=== PATIENT | female | born 1940 | race Hispanic/Latino ===

== ENCOUNTER 2017-02-07 15:19 | Inpatient (IN) | payer OTHER, MEDICARE ==
[2017-02-07 15:25] VITALS: BMI 24.7
--- NOTE | 2017-02-07 15:33 | ED PDOC ---
HPI:STROKE - Historian Historian: Patient (noted slurred speech around 6:30a today. She then noted drooling from the left side starting about 2 hours ago. She denies FORTUNE's or Loc. ), EMS - Chief Complaint Chief Complaint: Weakness, Slurred speech - Onset Date: 02/07/17 Time: 06:30 - Timing Timing: Persistent - Context Context: Other - Location Location: None, Difficult to localize Locate left: Face - Radiation Radiation: None NIHSS Stroke Scale - Date/Time Evaluation Performed Date Performed: 02/07/17 Time Performed: 15:20 When Was NIHSS Performed: Baseline - How Severe is the Stroke Level of Consciousness: 0=Alert LOC to Questions: 0=Both comments correct LOC to commands: 0=Obeys both correctly Best Gaze: 0=Normal Visual: 0=No visual loss Facial: 2=Partial (lower face paralysis) (left nasolabial) Motor Arm - Left: 0=No drift Motor Arm - Right: 0=No drift Motor Leg - Left: 0=No drift Motor Leg - Right: 0=No drift Limb Ataxia: 0=Absent Sensory: 0=Normal Best Language: 1=Mild to moderate aphasia Dysarthia: 1=Mild to moderate slurring Extinction & Inattention (Neglect): 0=Normal, no object Score: 4 rTPA Inclusion/Exclusion - Refusal of Treatment Patient Refused Treatment: No - Inclusion Criteria for Altepase Patient is 18 years or Older: Yes The Clinical Diagnosis of Ischemic Stroke That is Causing a Potentially Disabling Neurological Deficit: Yes Time of Onset is Well Established to be Less Than 270 Minute Before Treatment Would Begin: Yes Risk/Benefit Discussed With Patient/Family Member Present: Yes - Exclusion Criteria for Altepase Uncontrolled Hypertension at Time of Treatment (Systolic BP above 185 or Diastolic BP above 110 mmHg): No Active Internal Bleeding: No Known Bleeding Diathesis Including but Not Limited to: Platelets Below 100,000/ mm,PTT Above 40 sec After Heparin Use, Current Use of Oral Anitcoagulant With INR Greater Than 1.7 or PT Greater Than 15 secs: No Evidence of an Intracranial Hemorrhage: No Evidence of Major Acute Infarct With Signs Greater Than 1/3 MCA Territory: No Suspicion of Subarachnoid Hemorrhage on Pretreatment Evaluation Even if CT Head Negative For Hemorrhage: No - Warning to TPA With Conditions Following Conditions Weighed Against Anticipated Benefit: Yes Condition: Age Greater Than 75 years Additional Condition (For 3-4.5 Hour Window): Any anticoagulant use prior to admission (Even if INR less than 1.7) Past Medical History Reviewed: Historical Data, Nursing Documentation, Vital Signs Vital Signs: Last Vital Signs Temp 98.5 F 02/07/17 15:25 Pulse 74 02/07/17 15:25 Resp 18 02/07/17 15:25 BP 147/88 02/07/17 15:25 Pulse Ox 99 02/07/17 15:25 - Medical History PMH: Atrial Fibrillation, HTN, Hypothyroidism - Surgical History Surgical History: No Surg Hx - Family History Family History: States: No Known Family Hx - Living Arrangements Living Arrangements: With Family - Social History Current smoker - smoking cessation education provided: No - Home Medications Home Medications: Ambulatory Orders Medication Instructions Recorded Atorvastatin [Lipitor] 10 mg PO HS 02/07/17 Docusate [Colace] 100 mg PO BID 02/07/17 Levothyroxine [Synthroid] 75 mcg PO DAILY 02/07/17 Metoprolol Succinate [Metoprolol 50 mg PO Q12H 02/07/17 Succinate] Multivitamin [Multi-Vitamin Daily] 1 tab PO DAILY 02/07/17 Olmesartan [BenicarNf] 40 mg PO DAILY 02/07/17 Warfarin [Coumadin] 5 mg PO DAILY 02/07/17 - Allergies Allergies/Adverse Reactions: Allergies Allergy/AdvReac Type Severity Reaction Status Date / Time Penicillins Allergy RASH Verified 02/07/17 15:24 Review of Systems ROS Statement: Except As Marked, All Systems Reviewed And Found Negative Neurological: Positive for: Weakness (left lower face), Change in Speech Physical Exam - Reviewed Nursing Documentation Reviewed: Yes Vital Signs Reviewed: Yes - Physical Exam Appears: Positive for: Well, Non-toxic, No Acute Distress Head Exam: Positive for: ATRAUMATIC, NORMAL INSPECTION, NORMOCEPHALIC Skin: Positive for: Normal Color, Warm, DRY Eye Exam: Positive for: EOMI, Normal appearance, PERRL ENT: Positive for: Normal ENT Inspection Neck: Positive for: Normal, Painless ROM Cardiovascular/Chest: Positive for: Regular Rate, Rhythm Respiratory: Positive for: CNT, Normal Breath Sounds Gastrointestinal/Abdominal: Positive for: Normal Exam, Bowel Sounds, Soft Back: Positive for: Normal Inspection Rectal: Positive for: Other (left nasolabial weakess, slurred speech) Extremity: Positive for: Normal ROM Neurologic/Psych: Positive for: Alert, Oriented - ECG O2 Sat by Pulse Oximetry: 99 - Radiology X-Ray: Read By Radiologist X-Ray Interpretation: No Acute Disease - Critical Care Total Time (In Min): 30 Medical Decision Making Medical Decision Makin.45p - case d/w Dr. Montes De Oca. Patient's symptoms started 6:30a - she is beyond window for thrombolysis. Admit to observation Disposition - Clinical Impression Clinical Impression: CVA (cerebral vascular accident), TIA (transient ischemic attack) - Patient ED Disposition Is Patient to be Admitted: Yes Doctor Will See Patient In The: Hospital - Disposition Disposition: Transfer of Care Disposition Time: 15:50 Condition: GUARDED - Pt Status Changed To: Hospital Disposition Of: Observation - POA Present On Arrival: None
--- NOTE | 2017-02-07 15:47 | CT ---
PROCEDURE: CT HEAD WITHOUT CONTRAST. HISTORY: code stroke COMPARISON: None available. TECHNIQUE: Axial computed tomography images were obtained through the head/brain without intravenous contrast. Radiation dose: Total exam DLP = 853.50 mGy-cm. FINDINGS: HEMORRHAGE: No intracranial hemorrhage. BRAIN: No mass effect or edema. Mild atrophy, consistent with patient age. Mild periventricular white matter lucency consistent with chronic microvascular ischemic change. Small old bilateral basal ganglia lacunar infarcts. No evidence of acute infarct. VENTRICLES: Unremarkable. No hydrocephalus. CALVARIUM: Unremarkable. PARANASAL SINUSES: Unremarkable as visualized. No significant inflammatory changes. MASTOID AIR CELLS: Unremarkable as visualized. No inflammatory changes. OTHER FINDINGS: None. IMPRESSION: No evidence of acute infarct. Age-appropriate involutional changes. Small old bilateral basal ganglia lacunar infarcts. The findings in this examination were discussed by telephone with Dr. Prater at 3:45 p.m. on 02/07/2017.
[2017-02-07 15:49] LABS: BASO % 0.5 % (0.0-2.0); EOS # 0.1 K/uL (0.0-0.7); EOS % 1.1 % (0.0-4.0); HEMATOCRIT 40.7 % (34.0-47.0); LYMPH # 2.8 K/uL (1.0-4.3); LYMPH % 34.7 % (20.0-40.0); MEAN CELL VOLUME 97.5 fl (81.0-99.0); MEAN CORPUSCULAR HEMOGLOBIN 29.6 pg (27.0-31.0); MEAN CORPUSCULAR HGB CONC 30.3 g/dL (33.0-37.0); MEAN PLATELET VOLUME 10.1 fl (7.2-11.7); MONO # 0.7 K/uL (0.0-0.8); MONO % 9.2 % (0.0-10.0); NEUT # 4.4 K/uL (1.8-7.0); NEUT % 54.5 % (50.0-75.0); NRBC % 0.1 % (0.0-0.0); RED CELL DISTRIBUTION WIDTH 13.4 % (11.5-14.5); WHITE BLOOD COUNT 8.1 K/uL (4.8-10.8)
--- NOTE | 2017-02-07 15:58 | RAD ---
HISTORY: left drooling COMPARISON: None available. TECHNIQUE: Chest, one view. FINDINGS: LUNGS: No focal consolidation. Suspect right lower lobe and left mid lung zone calcified granulomas versus prominent vessels on end. Please note that chest x-ray has limited sensitivity for the detection of pulmonary masses. PLEURA: No significant pleural effusion identified. No definite pneumothorax . CARDIOVASCULAR: The cardiomediastinal silhouette appears within normal limits of size. OSSEOUS STRUCTURES: Osseous demineralization. Degenerative changes. Healed fracture deformity of the left humerus. VISUALIZED UPPER ABDOMEN: Unremarkable. OTHER FINDINGS: None. IMPRESSION: No acute findings. See above.
[2017-02-07 16:00] LABS: ALB/GLOB RATIO 1.1 (1.0-2.1); ALKALINE PHOSPHATASE 70 U/L (38-126); ALT/SGPT 43 U/L (9-52); AST/SGOT 48 U/L (14-36); BILIRUBIN,TOTAL 1.1 mg/dl (0.2-1.3); BLOOD UREA NITROGEN 17 mg/dl (7-17); CALCIUM 9.6 mg/dL (8.4-10.2); CARBON DIOXIDE 23 mmol/L (22-30); CHLORIDE 103 mmol/L (98-107); CHOLESTEROL 190 mg/dL (0-199); GFR AFRICAN-AMERICAN > 60; GLUCOSE,RANDOM 182 mg/dL (65-105); POTASSIUM 4.3 MMOL/L (3.6-5.0); SODIUM 144 mmol/l (132-148); TOTAL PROTEIN 8.3 G/DL (6.3-8.2)
[2017-02-07 17:21] LABS: PARTIAL THROMBOPLASTIN TIME 28.7 SECONDS (23.3-32.5)
[2017-02-07] MEDS: Metoprolol Succinate 50 mg XL Tab PO SCH (18:07)
--- NOTE | 2017-02-07 18:50 | CON ---
DATE: 02/07/2017 REASON FOR THE CONSULTATION: Transient ischemic attack. CHIEF COMPLAINT: The patient was brought into [facility] with a history of slurred speech this morning, which is followed by pooling of saliva on her mouth. From neurologic al point of view, I was called in to evaluate her for further management. HISTORY OF PRESENT ILLNESS: The patient is a 76-year-old right-handed female, usual state of health until this morning she woke up garbled speech. Immediately she called her ; that wa s witnessed by him also. She stayed home to make sure that her symptoms get better, however, a few h ours later the patient started to have drooling on the right side which is new to her. Since she did have a stroke in the past, she decided to come to the hospital for further evaluation. PAST MEDICAL HISTORY: Atrial fibrillation, stroke 2 years ago manifesting with right hemiparesis. PERSONAL HISTORY: Denies smoking or alcohol use. ALLERGIES: No known allergies. MEDICATIONS: Warfarin, Diovan, atorvastatin, levothyroxine, metoprolol. REVIEW OF SYSTEMS: As per H and P. VITAL SIGNS: Her blood pressure 121/70, mean arterial pressure of 87, respiratory rate 16, temperatu re afebrile. NECK: Supple. No carotid bruit. HEART SOUNDS: Irregularly irregular with a rate of 76. NEUROLOGICAL EXAMINATION: MENTAL STATUS EXAMINATION: She is awake, alert, oriented to person, place, and time. Speech is syeda r. Naming, repetition, fluency, comprehension all within normal. CRANIAL NERVE EXAMINATION: Visual field intact. Pupil reactive to light, extraocular movements norm al, no nystagmus. No facial sensory deficit, no facial asymmetry. Hearing is normal. Tongue is mid line. Good gag. MOTOR EXAMINATION: Outstretched hands with eyes closed, no drift noted. Power is symmetric on eithe r side. Right hand shows a resting tremor. DEEP TENDON REFLEXES: Biceps, brachioradialis, triceps 2+ on the right side; left side 1+. Right kn ee 2+, left knee 1+. Both ankles are absent. Plantars are upgoing on the right side; left side was downgoing. SENSORY EXAMINATION: Mild sensorimotor neuropathy. No cortical sensory loss. No extinction to doub le simultaneous stimuli. CONCLUSION: Upon reviewing her history and neurological examination, the patient is presenting with dominant hemispheric area dysfunction manifesting with slurred speech and drooling of saliva, which r aised the possibility of bulbar dysfunction. This is probably posterior cerebral artery versus left carotid artery dysfunction. Considering this event secondary to cardioembolic because of paroxysmal atrial fibrillation and her INR is low. At present, she is back to normal. No evidence of new symptom. The patient, herself, she feels almo st 75% is normal. Considering her symptoms and INR is 1.35, I would like to put her on warfarin 6 mg, in addition to th e other medication which she has been taking at present. INR should be followed every day. I also r ecommend to have a cardiology consultation for her cardiac status. In the meantime, I would like her to have MRI of the brain, MR angiogram, echocardiogram, carotid Doppler to be done. Will keep her on DVT prophylaxis. If condition progressed the patient may need bridging dose of hepa rin to keep the therapeutic level of INR until we get a therapeutic level INR. Dandre Montes De Oca MD cc: [id number] TT: 02/07/2017 18:49:59 Confirmation # [id number] Dictation # [id number] anna marie
--- NOTE | 2017-02-07 20:45 | MRI ---
EXAM: MR Head Without Intravenous Contrast. CLINICAL HISTORY: 76 years old, female; Signs and symptoms; Speech disturbance; Slurred speech; Patient HX: Pat noted slrurred speech around 6: 30 am also noted drooling from the left side; Additional info: CVA TECHNIQUE: Magnetic resonance images of the head/brain without intravenous contrast in multiple planes. EXAM DATE/TIME: 02/07/2017 5:20 PM COMPARISON: Head CT done earlier on the same day, at 3:29:12 PM FINDINGS: BRAIN: Best seen on images 13-15, there is a focal area of restricted diffusion seen in the right frontal lobe, along the sylvian fissure, compatible with an acute infarct. This measures about 2 cm maximally. Additional tiny, round focus of restricted diffusion is seen in the right frontal lobe more posteriorly, also compatible with an acute infarct. Somewhat extensive foci of increased T2 signal are seen in the white matter bilaterally, nonspecific in appearance, but most likely representing chronic small vessel ischemic changes, in a patient this age. Findings compatible with bilateral old/chronic infarcts in the basal ganglia bilaterally. Diffuse, age-related cortical atrophy and ventriculomegaly. No other significant abnormality identified. No acute extra-axial fluid collections visualized. No evidence of midline shift, ventricular effacement, basilar cistern effacement, or other significant intracranial mass effect. No signal abnormality seen to suggest acute intracranial hemorrhage. VENTRICLES: See above. BONES/JOINTS: No acute abnormality. SINUSES: Visualized paranasal sinuses appear clear, except for minimal mucosal thickening bilateral ethmoid sinuses. MASTOID AIR CELLS: Mastoid aircells appear clear. Negative. IMPRESSION: - Findings compatible a small acute infarct in the right frontal lobe, along the sylvian fissure. - See above for remaining findings.
--- NOTE | 2017-02-07 21:06 | MRI ---
EXAM: MR Angiography Head Without Intravenous Contrast. CLINICAL HISTORY: 76 years old, female; Signs and symptoms; Speech disturbance; Slurred speech; Additional info: Left cortical stroke TECHNIQUE: Magnetic resonance angiography images of the head without intravenous contrast. EXAM DATE/TIME: 02/07/2017 6:03 PM COMPARISON: Recent MRI of the brain. FINDINGS: RIGHT INTERNAL CAROTID ARTERY: Intracranial segment is patent with no significant stenosis. No aneurysm. RIGHT ANTERIOR CEREBRAL ARTERY: Incidental note is made of an azygos anterior cerebral artery. This is a normal variant. Best seen on image 100 of series 2, there are findings suspicious for a 5 mm aneurysm of the azygos anterior cerebral artery. No occlusion or significant stenosis. RIGHT MIDDLE CEREBRAL ARTERY: No occlusion or significant stenosis. No aneurysm. RIGHT POSTERIOR CEREBRAL ARTERY: No occlusion or significant stenosis. No aneurysm. RIGHT VERTEBRAL ARTERY: Visualized portions appear patent. LEFT INTERNAL CAROTID ARTERY: Intracranial segment is patent with no significant stenosis. No aneurysm. LEFT ANTERIOR CEREBRAL ARTERY: See above. LEFT MIDDLE CEREBRAL ARTERY: No occlusion or significant stenosis. No aneurysm. LEFT POSTERIOR CEREBRAL ARTERY: No occlusion or significant stenosis. No aneurysm. LEFT VERTEBRAL ARTERY: Appears dominant. Visualized portions appear patent. BASILAR ARTERY: No occlusion or significant stenosis. No aneurysm. IMPRESSION: - No evidence of occlusion or other acute abnormality of the major intracranial arteries. 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 - Findings were discussed with Dr. Frias on 02/07/2017 at 9:02 PM EDT. - See above for remaining findings.
--- NOTE | 2017-02-07 21:14 | MRI ---
EXAM: MR Angiography Neck Without Intravenous Contrast. CLINICAL HISTORY: 76 years old, female; Signs and symptoms; Speech disturbance; Slurred speech; Additional info: Left cortical stroke TECHNIQUE: Magnetic resonance angiography images of the neck without intravenous contrast. EXAM DATE/TIME: 02/07/2017 6:03 PM COMPARISON: No relevant prior studies available. FINDINGS: RIGHT COMMON CAROTID ARTERY: No evidence of occlusion or dissection. RIGHT INTERNAL CAROTID ARTERY: Extracranial segment is patent with no significant stenosis. No occlusion. RIGHT EXTERNAL CAROTID ARTERY: No occlusion. RIGHT VERTEBRAL ARTERY: Right vertebral artery is tortuous. Its distal aspect is poorly evaluated due to motion artifact. No evidence of occlusion. No significant stenosis. LEFT COMMON CAROTID ARTERY: No evidence of occlusion or dissection. LEFT INTERNAL CAROTID ARTERY: Extracranial segment is patent with no significant stenosis. No dissection or occlusion. LEFT EXTERNAL CAROTID ARTERY: No occlusion. LEFT VERTEBRAL ARTERY: Left vertebral artery is tortuous. It appears dominant. No evidence of occlusion or significant stenosis. SOFT TISSUES: CAROTID STENOSIS REFERENCE USING NASCET CRITERIA: % ICA stenosis = (1 - narrowest ICA diameter/diameter of distal cervical ICA) x 100. Mild - <50% stenosis. Moderate - 50-69% stenosis. Severe - 70-94% stenosis. Near occlusion - 95-99% stenosis. Occluded - 100% stenosis. IMPRESSION: - No evidence of occlusion or other acute abnormality of the major neck arteries. - See above for remaining findings.
[2017-02-07] MEDS: Enoxaparin 60 mg Syringe SC SCH (23:03)
[2017-02-08] MEDS: Metoprolol Succinate 50 mg XL Tab PO SCH ×2 (06:05→16:50)
--- NOTE | 2017-02-08 08:35 | HP ---
The patient is a 76-year-old female who was admitted via the Emergency Room because of sudden onset o f slurred speech the morning of admission. She indicates that the speech had been slurred for severa l hours prior to her presenting to the Emergency Room. She spent all day at home before she finally called a friend, and was asked to come to the Emergency Room. When she arrived at the Emergency Room her speech was still slurred, but she had no other gross neurologic deficits. She has a past medical history of cerebrovascular accident 3 years ago, atrial fibrillation which has required anticoagulation therapy with warfarin, and she had also been on metoprolol for the atrial f ibrillation. PAST MEDICAL HISTORY: Remarkable for cerebrovascular accident, hypertension, atrial fibrillation, hy perlipidemia, and hypothyroidism. FAMILY HISTORY: Nonrevealing. SOCIALLY: She does not smoke or drink. REVIEW OF SYSTEMS: Essentially remarkable for no evidence of palpitations, no chest pains, or shortn ess of breath, and no abnormal speech. No weakness of extremities. PHYSICAL EXAMINATION: The patient is alert and oriented, has no gross neurologic deficits, but speech is still slurred. Blood pressure 139/70 with a pulse of 72, respiratory rate is 18. She is afebrile, O2 sat 99% on jerry m air. SKIN: Shows fair turgor. Pupils equal, react to light and accommodation. Mouth shows fair hygiene. LUNGS: Clear. HEART: Irregular in rhythm (atrial fibrillation). BREASTS: Normal. ABDOMEN: Soft, nontender, no organomegaly. EXTREMITIES: Show no edema or cyanosis. CENTRAL NERVOUS SYSTEM EXAMINATION: Normal except for slurred speech; difficulty getting words out. RECTAL AND GENITALIA EXAMINATIONS: Deferred. LABORATORY DATA: Remarkable for WBC of 8.1, hemoglobin of 12.3, platelet count of 167,000. Sodium 1 44, potassium 4.3, BUN of 17, creatinine 0.8, serum glucose 182. Troponin less than 0.012. AST 48. Cholesterol 190, triglycerides 152, LDL 86, HDL 50. CHEST X-RAY: No acute findings. CT SCAN OF THE HEAD: No evidence of acute infarct. Small old bilateral basal ganglia lacunar infarc ts. IMPRESSION: Acute cerebrovascular accident, probably embolic in nature. History of atrial fibrillat ion, hyperlipidemia, history of hypertension. PLAN: Monitor the patient in telemetry, obtain neurology and cardiology evaluation. Continue antico agulation. Speech therapy evaluation. Physical therapy evaluation. Case discussed with the patient and the patient's at bedside. The patient normally goes to [facility], and was wondering if she needs to call and make arrangements to be transferred to [facility] if she is going to be in [place] for more than a few days. She was advised to see how sh e progresses in the next 24 hours before making a decision, but if she decides was transferred to [facility] she understands she has to make the arrangement with her , and the patient with transferred appropriately if that is what she desires. Will continue therapy as ordered. Kalin Frias MD cc: [id number] TT: 02/07/2017 19:48:50 jn 02/08/2017 07:34:39
[2017-02-08 09:29] LABS: THYROID STIMULATING HORMONE 2.76 mIU/ML (0.46-4.68)
[2017-02-08] MEDS ORDERED: Iodixanol 320 MG/ML 100 ML BOTTLE IV ONE (09:29)
[2017-02-08] MEDS ORDERED: Sodium Chloride 0.9% 50 ML IV ONE (09:29)
[2017-02-08] MEDS: Levothyroxine 75 MCG TAB PO SCH (10:04)
[2017-02-08] MEDS: Enoxaparin 60 mg Syringe SC SCH ×2 (10:05→21:22)
--- NOTE | 2017-02-08 10:07 | CP.PCM.PN ---
Subjective - Date & Time of Evaluation Date of Evaluation: 02/08/17 Time of Evaluation: 10:07 - Subjective Subjective: speech improving no weakness of extremities Objective - Vital Signs/Intake and Output Vital Signs (last 24 hours): Temp Pulse Resp BP Pulse Ox 96.1 F L 70 20 115/71 97 02/08/17 07:59 02/08/17 07:59 02/08/17 07:59 02/08/17 07:59 02/08/17 07:59 - Medications Medications: Current Medications Aspirin (Aspirin Chewable) 81 mg PO DAILY [facility] Last Admin: 02/07/17 17:33 Dose: 81 mg Atorvastatin Calcium (Lipitor) 10 mg PO HS [facility] Last Admin: 02/07/17 23:02 Dose: 10 mg Docusate Sodium (Colace) 100 mg PO BID [facility] Last Admin: 02/07/17 18:03 Dose: 100 mg Enoxaparin Sodium (Lovenox) 60 mg SC Q12 [facility] PRN Reason: Protocol Last Admin: 02/07/17 23:03 Dose: 60 mg Levothyroxine Sodium (Synthroid) 75 mcg PO DAILY [facility] Metoprolol Succinate (Toprol Xl) 50 mg PO Q12H [facility] Last Admin: 02/08/17 06:05 Dose: Not Given Valsartan (Diovan) 40 mg PO DAILY [facility] Warfarin Sodium (Coumadin) 6 mg PO QD5 [facility] PRN Reason: Protocol Stop: 02/08/17 17:01 - Labs Labs: PT 15.4 SECONDS (9.6-11.2) H 02/08/17 08:04 INR 1.48 (0.92-1.08) H 02/08/17 08:04 APTT 28.7 SECONDS (23.3-32.5) 02/07/17 15:44 - Constitutional Appears: Well - Head Exam Head Exam: ATRAUMATIC, NORMAL INSPECTION, NORMOCEPHALIC - Eye Exam Eye Exam: EOMI, Normal appearance, PERRL Pupil Exam: NORMAL ACCOMODATION, PERRL - ENT Exam ENT Exam: Mucous Membranes Moist, Normal Exam - Neck Exam Neck Exam: Full ROM, Normal Inspection. absent: Lymphadenopathy - Respiratory Exam Respiratory Exam: Clear to Ausculation Bilateral, NORMAL BREATHING PATTERN - Cardiovascular Exam Cardiovascular Exam: REGULAR RHYTHM, +S1, +S2. absent: Murmur - GI/Abdominal Exam GI & Abdominal Exam: Soft, Normal Bowel Sounds. absent: Tenderness - Rectal Exam Rectal Exam: NORMAL INSPECTION - Extremities Exam Extremities Exam: Full ROM, Normal Capillary Refill, Normal Inspection. absent : Joint Swelling, Pedal Edema - Back Exam Back Exam: NORMAL INSPECTION - Neurological Exam Neurological Exam: Alert, Awake, CN II-XII Intact, Normal Gait, Oriented x3 Additional comments: speech improved - Psychiatric Exam Psychiatric exam: Normal Affect, Normal Mood - Skin Skin Exam: Dry, Intact, Normal Color, Warm Assessment and Plan - Assessment and Plan (Free Text) Assessment: acute cva with small brain aneurysm mra/i results reviewd wit radiologist and pt Plan: [facility] will continue pt/ot and appropriate anticoagulation
--- NOTE | 2017-02-08 10:42 | US ---
PROCEDURE: Duplex ultrasound of the carotid and vertebral arteries. HISTORY: Acute left cortical infarction COMPARISON: None available. TECHNIQUE: Grayscale and duplex Doppler evaluation of the cervical carotid and vertebral arteries were performed. The common carotid, carotid bifurcations and cervical ICA and proximal ECA were evaluated. The vertebral arteries were evaluated for gross patency and direction. FINDINGS: RIGHT CAROTID ARTERIES: Common Carotid Artery: Normal. Maximal flow velocity of 84.0 cm/s. Carotid Bifurcation: Normal. Internal Carotid Artery:Normal. Maximal flow velocity of 91.6 cm/s. External Carotid Artery (proximal branches): Normal. Maximal flow velocity of 74.8 cm/s. ICA/CCA Ratio: 1.9 LEFT CAROTID ARTERIES: Common Carotid Artery: Normal. Maximal flow velocity of 77.5 cm/s. Carotid Bifurcation: Normal. Internal Carotid Artery:Normal. Maximal flow velocity of 86.5 cm/s. External Carotid Artery (proximal branches): Normal. Maximal flow velocity of 67.8 cm/s. ICA/CCA Ratio: 1.6 VERTEBRAL ARTERIES: Right Vertebral Artery: Patent. Antegrade flow. Left Vertebral Artery: Patent. Antegrade flow. OTHER FINDINGS: None. IMPRESSION: Normal Duplex Doppler of the cervical carotid and vertebral arteries.
--- NOTE | 2017-02-08 10:57 | CP.PCM.CON ---
History of Present Illness - History of Present Illness History of Present Illness: 76 y/o female admitted with CVA/slurred speech pt has fully recovered Has Hx Atrial fibrillation under care of residential sales associate at [facility] on coumadin but INR was low Pt now in NSR PMH: Atrial Fibrillation, HTN, Hypothyroidism EKG: normal sinus rhythm Troponin: neg Past Patient History - Past Medical History & Family History Past Medical History?: Yes - Past Social History Smoking Status: Former Smoker - CARDIAC Hx Cardiac Disorders: Yes Hx Atrial Fibrillation: Yes Hx Hypercholesterolemia: Yes Hx Hypertension: Yes - PULMONARY Hx Respiratory Disorders: No - NEUROLOGICAL Hx Neurological Disorder: Yes HX Cerebrovascular Accident: Yes (2012) Hx Transient Ischemic Attacks (TIA): Yes - HEENT Hx HEENT Problems: No - RENAL Hx Chronic Kidney Disease: No - ENDOCRINE/METABOLIC Hx Endocrine Disorders: Yes Hx Hypothyroidism: Yes - HEMATOLOGICAL/ONCOLOGICAL Hx Blood Disorders: Yes Hx Cancer: Yes (RIGHT BREAST CANCER) - INTEGUMENTARY Hx Dermatological Problems: No - MUSCULOSKELETAL/RHEUMATOLOGICAL Hx Musculoskeletal Disorders: No Hx Falls: No - GASTROINTESTINAL Hx Gastrointestinal Disorders: No - GENITOURINARY/GYNECOLOGICAL Hx Genitourinary Disorders: No - PSYCHIATRIC Hx Psychophysiologic Disorder: No Hx Substance Use: No - SURGICAL HISTORY Hx Surgeries: Yes Hx Mastectomy: Yes (rt. breast) - ANESTHESIA Hx Anesthesia: Yes Hx Anesthesia Reactions: No Hx Malignant Hyperthermia: No Meds Allergies/Adverse Reactions: Allergies Allergy/AdvReac Type Severity Reaction Status Date / Time Penicillins Allergy RASH Verified 02/07/17 15:24 - Medications Medications: Current Medications Aspirin (Aspirin Chewable) 81 mg PO DAILY [facility] Last Admin: 02/07/17 17:33 Dose: 81 mg Atorvastatin Calcium (Lipitor) 10 mg PO HS [facility] Last Admin: 02/07/17 23:02 Dose: 10 mg Docusate Sodium (Colace) 100 mg PO BID [facility] Last Admin: 02/08/17 10:05 Dose: 100 mg Enoxaparin Sodium (Lovenox) 60 mg SC Q12 [facility] PRN Reason: Protocol Last Admin: 02/08/17 10:05 Dose: 60 mg Levothyroxine Sodium (Synthroid) 75 mcg PO DAILY [facility] Last Admin: 02/08/17 10:04 Dose: 75 mcg Metoprolol Succinate (Toprol Xl) 50 mg PO Q12H [facility] Last Admin: 02/08/17 06:05 Dose: Not Given Valsartan (Diovan) 40 mg PO DAILY [facility] Last Admin: 02/08/17 10:05 Dose: 40 mg Warfarin Sodium (Coumadin) 6 mg PO QD5 [facility] PRN Reason: Protocol Stop: 02/08/17 17:01 Results - Vital Signs Recent Vital Signs: Last Vital Signs Temp 96.1 F L 02/08/17 07:59 Pulse 70 02/08/17 07:59 Resp 20 02/08/17 07:59 BP 115/71 02/08/17 07:59 Pulse Ox 97 02/08/17 07:59 - Labs Result Diagrams: 02/07/17 15:44 02/07/17 15:44 Labs: Laboratory Results - last 24 hr 02/08/17 02/08/17 06:20 08:04 PT 15.4 H INR 1.48 H TSH 3rd Generation 2.76 Assessment & Plan (1) TIA (transient ischemic attack) Status: Acute (2) Atrial fibrillation, chronic Assessment and Plan: pt is in sinus rhythm at present INR needs to be adjusted Status: Acute
--- NOTE | 2017-02-08 11:35 | CT ---
PROCEDURE: CT Angiography of the Brain. HISTORY: CHRISTIANE aneurysm COMPARISON: MRA head without contrast from 02/07/2017 TECHNIQUE: CT angiography of the intracranial arteries was performed. Coronal and sagittal maximum intensity projection reformated images were generated. Contrast dose: 95 mL Visipaque 320. Radiation dose: 1200.31 D LP FINDINGS: INTERNAL CEREBRAL ARTERIES: In the internal carotid arteries are patent. The right internal carotid artery is dominant with a slightly smaller left internal carotid artery. The skull base, petrous, cavernous and supraclinoid segments are bilaterally widely patient. ANTERIOR CEREBRAL ARTERIES: There is variant anatomy of the anterior cerebral arteries. There is bihemispheric anterior cerebral artery, with hypoplasia of the left A2 segment and a dominant right A2 segment. There is also fenestration in the proximal dominant right A2 segment. The left A1 segment is also hypoplastic. MIDDLE CEREBRAL ARTERIES: Both middle cerebral arteries are patent. There is a dominant right middle cerebral artery and a slightly smaller left middle cerebral artery. M1 and M2 segments are widely patent. Perisylvian branches grossly symmetric. POSTERIOR CIRCULATION: Basilar Artery: The basilar artery is patent, tortuous and normal in caliber. Distal Vertebral Arteries: The right vertebral artery is hypoplastic. The left vertebral artery is dominant. . Posterior Cerebral Arteries: There is origin of the right SERVICE PERSON. The left SERVICE PERSON is normal. Posterior Inferior Cerebellar Arteries: Normal. ANEURYSM/ VASCULAR MALFORMATIONS: There is a 5 x 3 mm saccular aneurysm arising from the midportion of the right dominant A2 segment projecting anterior superiorly. OTHER FINDINGS: None. IMPRESSION: 1. 5.3 mm saccular aneurysm projecting anterosuperiorly arising from a dominant right A2 segment. 2. Bihemispheric anterior cerebral arteries with a dominant right A2 segment and hypoplastic left A2 segment, an anatomic variant. 3. origin of the right posterior cerebral artery and a hypoplastic right distal vertebral artery, anatomic variant.
[2017-02-08 14:54] LABS: T4 9.51 ug/dl (5.5-11.0)
--- NOTE | 2017-02-08 18:32 | CARD ---
APPROVED REPORT EXAM: Two-dimensional and M-mode echocardiogram with Doppler and color Doppler. Other Information Quality : GoodRhythm : Atrial Fibrillation INDICATION CVA/TIA Atrial Fibrillation 2D DIMENSIONS IVSd1.13 (0.7-1.1cm)LVDd3.66 (3.9-5.9cm) LVOT Diameter2.36 (1.8-2.4cm)PWd1.14 (0.7-1.1cm) IVSs1.44 (0.8-1.2cm)LVDs2.55 (2.5-4.0cm) FS (%) 30.3 %PWs1.37 (0.8-1.2cm) M-Mode DIMENSIONS Left Atrium (MM)3.97 (2.5-4.0cm)IVSd0.74 (0.7-1.1cm) Aortic Root2.62 (2.2-3.7cm)LVDd5.29 (4.0-5.6cm) Aortic Cusp Exc.1.65 (1.5-2.0cm)PWd0.97 (0.7-1.1cm) IVSs1.46 cmFS (%) 41 % LVDs3.14 (2.0-3.8cm)PWs1.30 cm Mitral Valve E/A ratio0.0 TDI E/Lateral E'0.0E/Medial E'0.0 Tricuspid Valve TR Peak [id number] [id number] Peak Gr.25mmHg [id number] LEFT VENTRICLE The left ventricle is normal size. There is normal left ventricular wall thickness. The left ventricular function is normal. The left ventricular ejection fraction is 60% There is normal LV segmental wall motion. Transmitral Doppler flow pattern is Grade I-abnormal relaxation pattern. No left ventricle thrombus noted on this study. There is no ventricular septal defect visualized. There is no left ventricular aneurysm. There is no mass noted in the left ventricle. RIGHT VENTRICLE The right ventricle is normal size. There is normal right ventricular wall thickness. The right ventricular systolic function is normal. ATRIA The left atrium size is normal. The right atrium size is normal. The interatrial septum is intact with no evidence for an atrial septal defect. AORTIC VALVE The aortic valve is normal in structure and function. No aortic regurgitation is present. There is no aortic valvular stenosis. There is no aortic valvular vegetation. MITRAL VALVE The mitral valve is normal in structure and function. There is no evidence of mitral valve prolapse. There is no mitral valve stenosis. Mitral regurgitation is trace. TRICUSPID VALVE The tricuspid valve is normal in structure and function. There is mild to moderate tricuspid regurgitation. Right ventricular systolic pressure is estimated at 30-40 mmHg. There is no tricuspid valve prolapse or vegetation. There is no tricuspid valve stenosis. PULMONIC VALVE The pulmonary valve is normal in structure and function. There is no pulmonic valvular regurgitation. There is no pulmonic valvular stenosis. GREAT VESSELS The aortic root is normal in size. The ascending aorta is normal in size. The IVC is normal in size and collapses >50% with inspiration. PERICARDIAL EFFUSION The pericardium appears normal. There is no pleural effusion. <Conclusion> Normal LV systolic function Mild Mitral Regurgitation
--- NOTE | 2017-02-08 18:57 | CARD ---
APPROVED REPORT EKG Measurement Heart [id number] [place] [id number] <Conclusion> Sinus rhythm with marked sinus arrhythmia Otherwise normal ECG
--- NOTE | 2017-02-08 20:29 | PN ---
DATE: 02/08/2017 NEUROLOGICAL PROBLEM: Stroke manifesting with speech impairment. PHYSICAL EXAMINATION: VITAL SIGNS: Blood pressure 105/50, mean arterial pressure 71, respiratory rate 18, temperature 98.0 , pulse rate is 62 and regular. NEUROLOGIC: The patient is more awake, alert, oriented to person, place, and time. Speech is clear. Naming, repetition, fluency, comprehension all within normal. The examination is almost normal as yesterday. WORKUP: Right frontal stroke, which is probably secondary to decreased INR. 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 RECOMMENDATIONS: Physical therapy. Continue antiplatelets, blood pressure control. Neurosurgery co nsult also called to probable either embolization or coiling of the aneurysm. The patient will be followed closely with you. Dandre Montes De Oca MD cc: [id number] TT: 02/08/2017 20:28:42 Confirmation # [id number] Dictation # [id number] anna marie
[2017-02-09] MEDS: Metoprolol Succinate 50 mg XL Tab PO SCH ×2 (06:40→16:50)
[2017-02-09] MEDS: Levothyroxine 75 MCG TAB PO SCH ×2 (06:44→08:57)
[2017-02-09] MEDS: Enoxaparin 60 mg Syringe SC SCH ×2 (08:57→22:11)
--- NOTE | 2017-02-09 11:28 | CP.PCM.PN ---
Subjective - Date & Time of Evaluation Date of Evaluation: 02/09/17 Time of Evaluation: 11:00 - Subjective Subjective: Claims she feels well INR: 1.83 today still in sinus rhythm Coumadin 5mg ordered for today Objective - Vital Signs/Intake and Output Vital Signs (last 24 hours): Temp Pulse Resp BP Pulse Ox 97.6 F 48 L 18 100/66 96 02/09/17 08:10 02/09/17 08:10 02/09/17 08:10 02/09/17 08:10 02/09/17 08:10 - Medications Medications: Current Medications Aspirin (Aspirin Chewable) 81 mg PO DAILY [facility] Last Admin: 02/09/17 09:00 Dose: 81 mg Atorvastatin Calcium (Lipitor) 10 mg PO HS [facility] Last Admin: 02/08/17 21:22 Dose: 10 mg Docusate Sodium (Colace) 100 mg PO BID [facility] Last Admin: 02/09/17 08:56 Dose: 100 mg Enoxaparin Sodium (Lovenox) 60 mg SC Q12 [facility] PRN Reason: Protocol Last Admin: 02/09/17 08:57 Dose: 60 mg Levothyroxine Sodium (Synthroid) 75 mcg PO DAILY [facility] Last Admin: 02/09/17 08:57 Dose: Not Given Metoprolol Succinate (Toprol Xl) 50 mg PO Q12H [facility] Last Admin: 02/09/17 06:40 Dose: Not Given Valsartan (Diovan) 40 mg PO DAILY [facility] Last Admin: 02/09/17 08:56 Dose: 40 mg Warfarin Sodium (Coumadin) 5 mg PO QD5 [facility] PRN Reason: Protocol Stop: 02/09/17 17:01 - Labs Labs: PT 19.0 SECONDS (9.6-11.2) H 02/09/17 04:10 INR 1.83 (0.92-1.08) H 02/09/17 04:10 APTT 28.7 SECONDS (23.3-32.5) 02/07/17 15:44 Assessment and Plan (1) TIA (transient ischemic attack) Status: Acute (2) Atrial fibrillation, chronic Assessment & Plan: will continue with coumadin to elevate INR Status: Acute
--- NOTE | 2017-02-09 13:16 | CP.PCM.PN ---
Subjective - Date & Time of Evaluation Date of Evaluation: 02/09/17 Time of Evaluation: 13:16 - Subjective Subjective: FEELS BETTER SPEECH IMPROVED NO WEAKNESS OF EXTREMITIES Objective - Vital Signs/Intake and Output Vital Signs (last 24 hours): Temp Pulse Resp BP Pulse Ox 97.4 F L 53 L 18 108/59 L 97 02/09/17 12:25 02/09/17 12:25 02/09/17 12:25 02/09/17 12:25 02/09/17 12:25 - Medications Medications: Current Medications Aspirin (Aspirin Chewable) 81 mg PO DAILY [facility] Last Admin: 02/09/17 09:00 Dose: 81 mg Atorvastatin Calcium (Lipitor) 10 mg PO HS [facility] Last Admin: 02/08/17 21:22 Dose: 10 mg Docusate Sodium (Colace) 100 mg PO BID [facility] Last Admin: 02/09/17 08:56 Dose: 100 mg Enoxaparin Sodium (Lovenox) 60 mg SC Q12 [facility] PRN Reason: Protocol Last Admin: 02/09/17 08:57 Dose: 60 mg Levothyroxine Sodium (Synthroid) 75 mcg PO DAILY [facility] Last Admin: 02/09/17 08:57 Dose: Not Given Metoprolol Succinate (Toprol Xl) 50 mg PO Q12H [facility] Last Admin: 02/09/17 06:40 Dose: Not Given Valsartan (Diovan) 40 mg PO DAILY [facility] Last Admin: 02/09/17 08:56 Dose: 40 mg Warfarin Sodium (Coumadin) 5 mg PO QD5 [facility] PRN Reason: Protocol Stop: 02/09/17 17:01 - Labs Labs: PT 19.0 SECONDS (9.6-11.2) H 02/09/17 04:10 INR 1.83 (0.92-1.08) H 02/09/17 04:10 APTT 28.7 SECONDS (23.3-32.5) 02/07/17 15:44 - Constitutional Appears: Well - Head Exam Head Exam: ATRAUMATIC, NORMAL INSPECTION, NORMOCEPHALIC - Eye Exam Eye Exam: EOMI, Normal appearance, PERRL Pupil Exam: NORMAL ACCOMODATION, PERRL - ENT Exam ENT Exam: Mucous Membranes Moist, Normal Exam - Neck Exam Neck Exam: Full ROM, Normal Inspection. absent: Lymphadenopathy - Respiratory Exam Respiratory Exam: Clear to Ausculation Bilateral, NORMAL BREATHING PATTERN - Cardiovascular Exam Cardiovascular Exam: REGULAR RHYTHM, +S1, +S2. absent: Murmur - GI/Abdominal Exam GI & Abdominal Exam: Soft, Normal Bowel Sounds. absent: Tenderness - Rectal Exam Rectal Exam: NORMAL INSPECTION - Extremities Exam Extremities Exam: Full ROM, Normal Capillary Refill, Normal Inspection. absent : Joint Swelling, Pedal Edema - Back Exam Back Exam: NORMAL INSPECTION - Neurological Exam Neurological Exam: Alert, Awake, CN II-XII Intact, Normal Gait, Oriented x3 - Psychiatric Exam Psychiatric exam: Normal Affect, Normal Mood - Skin Skin Exam: Dry, Intact, Normal Color, Warm Assessment and Plan - Assessment and Plan (Free Text) Assessment: ACUTE CVA CEREBRAL ANEURYSM PAROXYSMAL A.FIB Plan: CASE DISCUSSED WITH PT SHE UNDERSTANDS THAT SHE HAS AN ANEURYSM AND WANTS TO SPEAK WITH THE NEUROSURGEON BEFORE DISCHARGE SHE INDICATES THAT SHE WOULD PROBABLY NOT HAVE ANY SURGICAL INTERVENTION NOW AND MAY WANT TO PURSUE RX IN CT WILL PLAN D/C ONCE INR IS THERAPEUTIC AND NEUROSURGERY EVAL IS COMPLETE
[2017-02-10] MEDS: Levothyroxine 75 MCG TAB PO SCH ×2 (06:39→09:24)
[2017-02-10] MEDS: Metoprolol Succinate 50 mg XL Tab PO SCH (06:43)
[2017-02-10 09:32] VITALS: BP 128/74; PULSE 67; RESP 20; TEMP 98.5; O2SAT 99
[2017-02-10] MEDS: Enoxaparin 60 mg Syringe SC SCH (10:08)
--- NOTE | 2017-02-10 11:04 | CP.PCM.DIS ---
Provider - Provider Date of Admission: 02/07/17 16:11 Attending physician: Kalin Tomlin MD Time Spent in preparation of Discharge (in minutes): 35 Diagnosis - Discharge Diagnosis (1) Atrial fibrillation, chronic Status: Acute (2) CVA (cerebral vascular accident) Status: Acute (3) TIA (transient ischemic attack) Status: Acute (4) Hypertension Status: Acute (5) Cerebral aneurysm Status: Acute Hospital Course - Lab Results Lab Results: Most Recent Lab Values WBC 8.1 K/uL (4.8-10.8) 02/07/17 15:44 RBC 4.17 Mil/uL (3.80-5.20) 02/07/17 15:44 Hgb 12.3 g/dL (12.0-16.0) 02/07/17 15:44 Hct 40.7 % (34.0-47.0) 02/07/17 15:44 MCV 97.5 fl (81.0-99.0) 02/07/17 15:44 MCH 29.6 pg (27.0-31.0) 02/07/17 15:44 MCHC 30.3 g/dL (33.0-37.0) L 02/07/17 15:44 RDW 13.4 % (11.5-14.5) 02/07/17 15:44 Plt Count 167 K/uL (130-400) 02/07/17 15:44 MPV 10.1 fl (7.2-11.7) 02/07/17 15:44 Neut % (Auto) 54.5 % (50.0-75.0) 02/07/17 15:44 Lymph % (Auto) 34.7 % (20.0-40.0) 02/07/17 15:44 [place] % (Auto) 9.2 % (0.0-10.0) 02/07/17 15:44 Eos % (Auto) 1.1 % (0.0-4.0) 02/07/17 15:44 Baso % (Auto) 0.5 % (0.0-2.0) 02/07/17 15:44 Neut # 4.4 K/uL (1.8-7.0) 02/07/17 15:44 Lymph # 2.8 K/uL (1.0-4.3) 02/07/17 15:44 [place] # 0.7 K/uL (0.0-0.8) 02/07/17 15:44 Eos # 0.1 K/uL (0.0-0.7) 02/07/17 15:44 Baso # 0.0 K/uL (0.0-0.2) 02/07/17 15:44 PT 21.2 SECONDS (9.6-11.2) H 02/10/17 06:02 INR 2.04 (0.92-1.08) H 02/10/17 06:02 APTT 28.7 SECONDS (23.3-32.5) 02/07/17 15:44 Sodium 144 mmol/l (132-148) 02/07/17 15:44 Potassium 4.3 MMOL/L (3.6-5.0) 02/07/17 15:44 Chloride 103 mmol/L (98-107) 02/07/17 15:44 Carbon Dioxide 23 mmol/L (22-30) 02/07/17 15:44 Anion Gap 23 (10-20) H 02/07/17 15:44 BUN 17 mg/dl (7-17) 02/07/17 15:44 Creatinine 0.8 mg/dL (0.7-1.2) 02/07/17 15:44 Est GFR ( Amer) > 60 02/07/17 15:44 Est GFR (Non-Af Amer) > 60 02/07/17 15:44 POC Glucose (mg/dL) 184 mg/dL (65-110) H 02/07/17 15:25 Random Glucose 182 mg/dL (65-105) H 02/07/17 15:44 Hemoglobin A1c 5.5 % (4.2-6.5) 02/07/17 15:44 Calcium 9.6 mg/dL (8.4-10.2) 02/07/17 15:44 Total Bilirubin 1.1 mg/dl (0.2-1.3) 02/07/17 15:44 AST 48 U/L (14-36) H 02/07/17 15:44 ALT 43 U/L (9-52) 02/07/17 15:44 Alkaline Phosphatase 70 U/L (38-126) 02/07/17 15:44 Troponin I < 0.0120 ng/mL (0.00-0.120) 02/07/17 15:44 Total Protein 8.3 G/DL (6.3-8.2) H 02/07/17 15:44 Albumin 4.4 g/dL (3.5-5.0) 02/07/17 15:44 Globulin 3.9 gm/dL (2.2-3.9) 02/07/17 15:44 Albumin/Globulin Ratio 1.1 (1.0-2.1) 02/07/17 15:44 Triglycerides 152 mg/DL (0-149) H 02/07/17 15:44 Cholesterol 190 mg/dL (0-199) 02/07/17 15:44 LDL Cholesterol Direct 86 mg/dL (0-129) 02/07/17 15:44 HDL Cholesterol 50 MG/DL (30-70) 02/07/17 15:44 Thyroxine (T4) 9.51 ug/dl (5.5-11.0) 02/08/17 06:20 TSH 3rd Generation 2.76 mIU/ML (0.46-4.68) 02/08/17 06:20 Blood Type O POSITIVE 02/07/17 16:10 Antibody Screen Negative 02/07/17 16:10 BBK History Checked No verified bt 02/07/17 16:10 - Hospital Course Hospital Course: slurred speech resolved no residual neurologic deficits inr-2 neurosurgical consult requested for cerebral aneurysm and is still pending but pt wants to go home and follow up with her private neurologist for appropriate referral Discharge Exam - Head Exam Head Exam: ATRAUMATIC, NORMAL INSPECTION, NORMOCEPHALIC - Eye Exam Eye Exam: EOMI, Normal appearance, PERRL Pupil Exam: NORMAL ACCOMODATION, PERRL - GI/Abdominal Exam GI & Abdominal Exam: Normal Bowel Sounds - Rectal Exam Rectal Exam: NORMAL INSPECTION - Neurological Exam Neurological exam: Alert, CN II-XII Intact, Normal Gait, Oriented x3, Reflexes Normal - Psychiatric Exam Psychiatric exam: Normal Affect, Normal Mood - Skin Skin Exam: Dry, Intact, Normal Color, Warm Discharge Plan - Follow Up Plan Condition: GUARDED Disposition: HOME/ ROUTINE Patient education suggested?: Yes Additional Instructions: discharge today followup with dr tomlin and primary neurologist
--- NOTE | 2017-02-12 10:12 | CARD ---
APPROVED REPORT EKG Measurement Heart [id number] OR [id number] <Conclusion> Sinus bradycardia Otherwise normal ECG
--- NOTE | 2017-02-12 15:34 | PQF CVATIA ---
Dr. Frias discharge summary documents CVA and TIA. After study was the pt admitted with CVA, TIA or other? This form is a permanent part of the medical record Clarification of your documentation is requested to better reflect the severity of illness and intensity of treatment of your patient. Indicators present: [] Altered mental status [] Aphasia [] Dysphagia [] Dysphasia [] Facial droop/numbness [] Gait disturbance [] Hemiparesis/plegia [x] Speech impairment [x] Weakness [x] Neuro Consult [] CT/MRI Findings [] Other: [] Location in the medical record that reflects the above clinical findings: [] Treatment Provided: [] PHYSICIAN'S RESPONSE Based on your medical judgment of the clinical indicators outlined above, are you treating this patient for a known or suspected: [] Acute Cerebrovascular Accident (CVA) Please specify type i.e.; embolic, hemorrhagic, ischemic. Please specify the artery involved if known. [] Transient Ischemic Accident (TIA) [] Prolonged reversible ischemic neurological disorder [] Other, please indicate: [x]ISCHEMIC [] If unable to determine, please check the box, sign and date. Present On Admission (POA) Indicator: [X] Present at the time of admission [] Not present at the time of admission [] Clinically Undetermined In responding to this query, please exercise your independent professional judgment. The fact that a question is asked does not imply that any particular answer is desired or expected. Thank you for your clarification on this documentation. If you have any questions please call:[ ] * Thank you, [ ]Winnie Mendez pc technician LORNA
--- NOTE | 2017-02-13 07:16 | CON ---
DATE: 02/08/2017 This is a 76-year-old lady that presented with a relatively small frontal infarct, incidentally was n oted a questionable 5 mm aneurysm of the anterior cerebral artery. Of note, this is questionable, it is incidental, it is not related to any clinical status. There is nothing to be done about it. My simple recommendation would be probably to repeat the MRA in 6 month s and see if it is visible, if it has changed at all and at that time a discussion can be had with th e patient. In this age group and this size aneurysm, it would be incredibly unlikely to consider any type of intervention. Juwan Barnes MD cc: [id number] TT: 02/08/2017 15:39:24 Confirmation # [id number] Dictation # [id number] hanna
== END 2017-02-10 13:49 | disposition home or self-care (01) | DRG 66 ==
LOC: H.ER 15:19 → H.ERHOLD 16:11 → H.TEL 20:36
PROVIDERS: ADMIT Internal Medicine Pulmonary Disease; ATTEND Internal Medicine Pulmonary Disease
DX: I63.9 Cerebral infarction, unspecified (principal); I67.1 Cerebral aneurysm, nonruptured; I48.2 Chronic atrial fibrillation; I10 Essential (primary) hypertension; E03.9 Hypothyroidism, unspecified; E78.5 Hyperlipidemia, unspecified; Z86.73 Personal history of transient ischemic attack (TIA), and cerebral infarction without residual deficits; Z79.01 Long term (current) use of anticoagulants; R47.81 Slurred speech; Z88.0 Allergy status to penicillin

== ENCOUNTER 2018-01-26 11:00 | Emergency (ER) | payer OTHER, MEDICARE ==
[2018-01-26 11:09] VITALS: RESP 16; TEMP 97.2
[2018-01-26 11:10] VITALS: BMI 23.3
[2018-01-26] MEDS ORDERED: Sodium Chloride 0.9% 500 ML IV STA (11:31)
--- NOTE | 2018-01-26 11:37 | ED PDOC ---
HPI: General Adult Time Seen by Provider: 01/26/18 11:14 Chief Complaint (Nursing): Weakness/Neurological Deficit Chief Complaint (Provider): Dizziness History Per: Patient History/Exam Limitations: no limitations Onset/Duration Of Symptoms: Days (2) Have you had recent travel within the past 21 days to any of the following countries: [place], [place], [place] or [place]?: No Current Symptoms Are (Timing): Still Present Severity: None Pain Scale Rating Of: 0 Additional Complaint(s): 77 year old female with a past medical history of aneurysm clip, hypertension, stroke x2, atrial fibrillation (watchman device in place) presents to the ED complaining of dizziness x2 day. The patient reports that her symptoms began yesterday and she states that she felt a "cloudiness" in her head. She reports that this morning her symptoms worsened and her blood pressure was also higher than usual (120 diastolic). Denies numbness/tingling, headache, abdominal pain, nausea, vomiting, diarrhea, chest pain, shortness of breath, back pain, leg pain , weakness. Of note: patient states that she is currently taking betroprolol, losartan(6 months), 180mg lipitor, small aspirin and levoxyl(hypothyroidism). PMD:Dr. Gar Past Medical History Reviewed: Historical Data, Nursing Documentation, Vital Signs Vital Signs: Last Vital Signs Temp 97.2 F L 01/26/18 11:09 Pulse 57 L 01/26/18 13:28 Resp 16 01/26/18 11:09 BP 141/80 01/26/18 12:50 Pulse Ox 99 01/26/18 13:28 - Medical History PMH: Atrial Fibrillation, CVA, HTN, Hypercholesterolemia, Hypothyroidism, TIA Denies: Chronic Kidney Disease - Surgical History Other surgeries: Anuerysm clipped - Family History Family History: States: Unknown Family Hx - Social History Current smoker - smoking cessation education provided: No (Former Smoker) Ex-Smoker (has not smoked in the last 12 months): No Alcohol: Social Drugs: Denies - Home Medications Home Medications: Ambulatory Orders Medication Instructions Recorded Atorvastatin [Lipitor] 10 mg PO HS 02/07/17 Docusate [Colace] 100 mg PO BID 02/07/17 Levothyroxine [Synthroid] 75 mcg PO DAILY 02/07/17 Metoprolol Succinate 50 mg PO Q12H 02/07/17 Multivitamin [Multi-Vitamin Daily] 1 tab PO DAILY 02/07/17 Olmesartan [BenicarNf] 40 mg PO DAILY 02/07/17 Warfarin [Coumadin] 5 mg PO DAILY 02/07/17 - Allergies Allergies/Adverse Reactions: Allergies Allergy/AdvReac Type Severity Reaction Status Date / Time Penicillins Allergy RASH Verified 02/07/17 15:24 Review of Systems ROS Statement: Except As Marked, All Systems Reviewed And Found Negative Cardiovascular: Negative for: Chest Pain Respiratory: Negative for: Shortness of Breath Gastrointestinal: Negative for: Nausea, Vomiting, Abdominal Pain, Diarrhea Musculoskeletal: Negative for: Back Pain Neurological: Positive for: Dizziness. Negative for: Weakness, Numbness, Headache Physical Exam - Reviewed Nursing Documentation Reviewed: Yes Vital Signs Reviewed: Yes - Physical Exam Appears: Positive for: Non-toxic, No Acute Distress Head Exam: Positive for: ATRAUMATIC, NORMAL INSPECTION, NORMOCEPHALIC Skin: Positive for: Normal Color, Warm, Dry. Negative for: Rash Eye Exam: Positive for: Normal appearance, EOMI, PERRL. Negative for: Nystagmus ENT: Positive for: Normal ENT Inspection. Negative for: Nasal Congestion, Tonsillar Exudate, Tonsillar Swelling Neck: Positive for: Normal, Painless ROM, Supple Cardiovascular/Chest: Positive for: Regular Rate, Rhythm, Chest Non Tender. Negative for: Tachycardia Respiratory: Positive for: Normal Breath Sounds. Negative for: Wheezing, Respiratory Distress Gastrointestinal/Abdominal: Positive for: Normal Exam, Bowel Sounds, Soft. Negative for: Tenderness, Mass, Rebound Back: Positive for: Normal Inspection. Negative for: L CVA Tenderness, R CVA Tenderness Extremity: Positive for: Normal ROM. Negative for: Tenderness, Deformity, Swelling Neurologic/Psych: Positive for: Alert, suit attendant II-XII, Oriented, Cerebellar Tests ( normal), Gait. Negative for: Motor/Sensory Deficits, Aphasia - Laboratory Results Result Diagrams: 01/26/18 11:44 01/26/18 11:44 Interpretation Of Abn Labs: alt/ast mild elevation; 23 bun - ECG ECG: Positive for: Interpreted By Me, Viewed By Me ECG Rhythm: Positive for: Sinus Rhythm Interpretation Of Abn EKG: PVC occasional O2 Sat by Pulse Oximetry: 97 (RA) Pulse Ox Interpretation: Normal - Progress ED Course And Treament: 1459: Stable. AAOx3. No dizziness or symptoms currently. Pt. has capacity to make decisions. Does not want a ct scan of the head or further evaluation/ admission. Pt. aware of possible or decreased functioning from possible causes of her dizziness that we can't identify due to no ct of the head or further evaluation. Pt. aware and will go against medical advice. Ambulated with no issues. Medical Decision Making Medical Decision Makin Initial Impression 77 y/o female presenting with dizziness Initial Plan: * CT head w/o Contrast * CMP * Troponin * CBC * PTT * Partial Thromboplastin * Antivert 25mg PO * NS 500mls IV 100 mls/hr * Reevaluation Documented by Brenda Mohan acting as a scribe for Dave Quintero MD. All medical record entries made by the Scribe were at my direction and personally dictated by me. I have reviewed the chart and agree that the record accurately reflects my personal performance of the history, physical exam, medical decision making, and the department course for this patient. I have also personally directed, reviewed, and agree with the discharge instructions and disposition. Disposition - Clinical Impression Clinical Impression: Dizziness - Patient ED Disposition Is Patient to be Admitted: No Counseled Patient/Family Regarding: Studies Performed, Diagnosis - Disposition Referrals: [facility] [place] [facility] [Outside] - 01/28/18 Disposition: Against Medical Advice Disposition Time: 13:54 Condition: STABLE Additional Instructions: You do not want a ct scan of the head or further evaluation/admission. You are aware of possible or decreased functioning from possible causes of dizziness that we can't identify due to no ct of the head or further evaluation. You are going against medical advice. Instructions: Dizziness, Nonvertigo, (DC) Forms: [facility] (Marshallese)
[2018-01-26 11:51] LABS: BASO # 0.1 K/uL (0.0-0.2); BASO % 0.8 % (0.0-2.0); EOS # 0.1 K/uL (0.0-0.7); EOS % 1.5 % (0.0-4.0); HEMOGLOBIN 14.9 g/dL (12.0-16.0); LYMPH # 2.6 K/uL (1.0-4.3); LYMPH % 31.8 % (20.0-40.0); MEAN CORPUSCULAR HEMOGLOBIN 32.5 pg (27.0-31.0); MEAN CORPUSCULAR HGB CONC 33.5 g/dL (33.0-37.0); MEAN PLATELET VOLUME 10.4 fl (7.2-11.7); MONO # 0.8 K/uL (0.0-0.8); MONO % 9.8 % (0.0-10.0); NEUT # 4.6 K/uL (1.8-7.0); NEUT % 56.1 % (50.0-75.0); NRBC % 0.1 % (0.0-0.0); RBC 4.58 Mil/uL (3.80-5.20); RED CELL DISTRIBUTION WIDTH 13.4 % (11.5-14.5); WHITE BLOOD COUNT 8.2 K/uL (4.8-10.8)
[2018-01-26 12:01] LABS: ALB/GLOB RATIO 1.1 (1.0-2.1); ALBUMIN 4.3 g/dL (3.5-5.0); ALT/SGPT 71 U/L (9-52); AST/SGOT 62 U/L (14-36); BLOOD UREA NITROGEN 23 mg/dl (7-17); CALCIUM 9.6 mg/dL (8.4-10.2); GFR AFRICAN-AMERICAN > 60; GFR NON-AFRICAN AMERICAN > 60
[2018-01-26 12:50] VITALS: BP 141/80
[2018-01-26 13:29] VITALS: PULSE 57
[2018-01-26 13:41] LABS: INR 1.1 (0.9-1.2); PARTIAL THROMBOPLASTIN TIME 28.8 Seconds (25.6-37.1)
[2018-01-26 13:49] VITALS: O2SAT 97
== END 2018-01-26 14:29 | disposition home or self-care (01) ==
LOC: H.ER 11:00
DX: R42 Dizziness and giddiness (principal); E03.9 Hypothyroidism, unspecified; E78.00 Pure hypercholesterolemia, unspecified; I10 Essential (primary) hypertension; Z79.01 Long term (current) use of anticoagulants; Z86.73 Personal history of transient ischemic attack (TIA), and cerebral infarction without residual deficits; Z87.891 Personal history of nicotine dependence; Z88.0 Allergy status to penicillin
CPT/HCPCS: 80053; 84484; 85025; 85610; 85730; 99285; J7040

== ENCOUNTER 2018-02-03 23:50 | Emergency (ER) | payer MEDICARE, OTHER ==
[2018-02-03 23:50] VITALS: BMI 23.3
[2018-02-04 00:20] VITALS: TEMP 97.4
--- NOTE | 2018-02-04 01:52 | ED PDOC ---
HPI: Hypertension/Hypotension Time Seen by Provider: 02/04/18 00:20 Chief Complaint (Nursing): High Blood Pressure Chief Complaint (Provider): High Blood Pressure History Per: Patient History/Exam Limitations: no limitations Onset/Duration Of Symptoms: Mins (prior to arrival) Current Symptoms Are (Timing): Still Present Additional Complaint(s): 77 year old female with a history of HTN, hypothyroidism, a-fib, presents to the ED complaining of high blood pressure. Patient reports that her blood pressure at home around 23:00 was 166/73. She took 100 mg of Metoprolol Succinate. At that time she felt generally weak, but weakness has resolved. Her blood pressure is currently 141/97. Denies chest pain, shortness of breath, focal weakness or headache. PMD: Dr. Karl Gar at [facility] Past Medical History Reviewed: Historical Data, Nursing Documentation, Vital Signs Vital Signs: Last Vital Signs Temp 97.4 F L 02/04/18 00:14 Pulse 50 L 02/04/18 00:14 Resp 16 02/04/18 00:14 BP 166/73 H 02/04/18 00:14 Pulse Ox 100 02/04/18 00:14 - Medical History PMH: Atrial Fibrillation, CVA, HTN, Hypercholesterolemia, Hypothyroidism, TIA Denies: Chronic Kidney Disease Other PMH: breast cancer - Surgical History Other surgeries: right breast surgery and chemotherapy in 1989, brain aneurysm clipping in 2017 - Family History Family History: States: Unknown Family Hx - Social History Ex-Smoker (has not smoked in the last 12 months): Yes Alcohol: None - Home Medications Home Medications: Ambulatory Orders Medication Instructions Recorded Atorvastatin [Lipitor] 10 mg PO HS 02/07/17 Docusate [Colace] 100 mg PO BID 02/07/17 Levothyroxine [Synthroid] 75 mcg PO DAILY 02/07/17 Metoprolol Succinate 50 mg PO Q12H 02/07/17 Multivitamin [Multi-Vitamin Daily] 1 tab PO DAILY 02/07/17 Olmesartan [BenicarNf] 40 mg PO DAILY 02/07/17 Warfarin [Coumadin] 5 mg PO DAILY 02/07/17 - Allergies Allergies/Adverse Reactions: Allergies Allergy/AdvReac Type Severity Reaction Status Date / Time Penicillins Allergy RASH Verified 02/04/18 00:14 Review of Systems ROS Statement: Except As Marked, All Systems Reviewed And Found Negative Constitutional: Negative for: Weakness Musculoskeletal: Negative for: Leg Pain Neurological: Negative for: Weakness, Numbness, Other (tingling) Physical Exam - Reviewed Nursing Documentation Reviewed: Yes Vital Signs Reviewed: Yes - Physical Exam Appears: Positive for: Non-toxic, No Acute Distress Head Exam: Positive for: ATRAUMATIC, NORMOCEPHALIC Skin: Positive for: Normal Color, Warm, Dry Eye Exam: Positive for: EOMI, Normal appearance, PERRL Neck: Positive for: Normal, Painless ROM, Supple Cardiovascular/Chest: Positive for: Regular Rate, Rhythm. Negative for: Murmur Respiratory: Positive for: Normal Breath Sounds. Negative for: Respiratory Distress Gastrointestinal/Abdominal: Positive for: Normal Exam, Soft Back: Positive for: Normal Inspection. Negative for: L CVA Tenderness, R CVA Tenderness Extremity: Positive for: Normal ROM. Negative for: Deformity Neurologic/Psych: Positive for: Alert, Oriented, Gait (steady). Negative for: Motor/Sensory Deficits, Aphasia - Laboratory Results Result Diagrams: 02/04/18 02:25 02/04/18 02:25 - ECG O2 Sat by Pulse Oximetry: 100 (RA) Pulse Ox Interpretation: Normal Medical Decision Making Medical Decision Making: Time: 01:44 Initial Plan: htn, resolved now --CMP --CBC with differentials EKG --sinus arrhythmia, rate is 64 Patient reported generalized weakness when her blood pressure was high, but it has completely resolved with a decrease in blood pressure. pt sleeping comfortably in no distress Labs reveal slightly elevated LFTs, (pt aware of that) but the rest are normal. Patient is diagnosed with hypertension. Discussed results, diagnosis and need for follow up with PMD with patient. Return if symptoms persist or worsen. Scribe Attestation: Documented by Jud Qiu, acting as a scribe for Rohan Flor MD. Provider Scribe Attestation: All medical record entries made by the Scribe were at my direction and personally dictated by me. I have reviewed the chart and agree that the record accurately reflects my personal performance of the history, physical exam, medical decision making, and the department course for this patient. I have also personally directed, reviewed, and agree with the discharge instructions and disposition. Disposition - Clinical Impression Clinical Impression: Hypertension - Patient ED Disposition Is Patient to be Admitted: No Counseled Patient/Family Regarding: Studies Performed, Diagnosis, Need For Followup - Disposition Disposition: Routine/Home Disposition Time: 04:20 Condition: IMPROVED Additional Instructions: follow up with your primary doctor tomorrow for reevaluation your liver enzymes are elevated return to the ED with any worsening or concerning symptoms Instructions: High Blood Pressure (DC) Forms: [facility] (Panamanian) - POA Present On Arrival: None
[2018-02-04 02:36] LABS: BASO # 0.1 K/uL (0.0-0.2); BASO % 0.8 % (0.0-2.0); EOS # 0.2 K/uL (0.0-0.7); EOS % 1.9 % (0.0-4.0); HEMOGLOBIN 13.5 g/dL (12.0-16.0); LYMPH % 31.4 % (20.0-40.0); MEAN CELL VOLUME 95.6 fl (81.0-99.0); MEAN CORPUSCULAR HEMOGLOBIN 32.6 pg (27.0-31.0); MEAN CORPUSCULAR HGB CONC 34.1 g/dL (33.0-37.0); MEAN PLATELET VOLUME 10.1 fl (7.2-11.7); MONO # 0.9 K/uL (0.0-0.8); MONO % 9.3 % (0.0-10.0); NEUT # 5.5 K/uL (1.8-7.0); NEUT % 56.6 % (50.0-75.0); NRBC % 0.1 % (0.0-0.0); RBC 4.14 Mil/uL (3.80-5.20); RED CELL DISTRIBUTION WIDTH 13.1 % (11.5-14.5); WHITE BLOOD COUNT 9.7 K/uL (4.8-10.8)
[2018-02-04 02:53] LABS: ALB/GLOB RATIO 1.2 (1.0-2.1); ALBUMIN 4.1 g/dL (3.5-5.0); ALT/SGPT 70 U/L (9-52); AST/SGOT 66 U/L (14-36); BLOOD UREA NITROGEN 23 mg/dl (7-17); CALCIUM 9.3 mg/dL (8.4-10.2); GFR AFRICAN-AMERICAN > 60; GFR NON-AFRICAN AMERICAN > 60
[2018-02-04 04:03] VITALS: BP 123/75; PULSE 58; RESP 17
[2018-02-04 04:27] VITALS: O2SAT 100
== END 2018-02-04 04:43 | disposition home or self-care (01) ==
LOC: H.ER 23:50
DX: I10 Essential (primary) hypertension (principal); E78.00 Pure hypercholesterolemia, unspecified; E03.9 Hypothyroidism, unspecified; I48.91 Unspecified atrial fibrillation; Z85.3 Personal history of malignant neoplasm of breast; Z87.891 Personal history of nicotine dependence